=== PATIENT | female | born 1995 | race Caucasian/White ===

== ENCOUNTER 2019-07-06 07:09 | Emergency (ER) | payer BC, OTHER ==
[2019-07-06 07:30] VITALS: BP 98/62
--- NOTE | 2019-07-06 07:53 | UC ---
UC General HPI - HPI Summary HPI Summary: 23-year-old woman comes in with a chief complaint of possible exposure to rabies. Patient woke up with a bat in her room during the evening of July 03 into the morning of July 04. She has no known bites. She discussed this with the General acute hospital Department and it was recommended that she get the rabies series. She does have some upper respiratory tract infection symptoms feeling well otherwise. Has no prior history of rabies immunization. She believes she is up-to-date on her tetanus and she states that she will investigate that with her primary care to determine if she's had her tetanus or not. - History of Current Complaint Chief Complaint: UCBiteInjury Stated Complaint: RABIES EXPOSURE Time Seen by Provider: 07/06/19 07:37 Hx Last Menstrual Period: 06/26/19 Pain Intensity: 0 - Allergy/Home Medications Allergies/Adverse Reactions: Allergies Allergy/AdvReac Type Severity Reaction Status Date / Time No Known Allergies Allergy Verified 07/06/19 07:30 Home Medications: Home Medications Aviane Control 1 tab PO DAILY 07/06/19 [History Confirmed 07/06/19] PMH/Surg Hx/FS Hx/Imm Hx Previously Healthy: Yes - Surgical History Surgical History: Yes Surgery Procedure, Year, and Place: right knee arthroscope,. hernia. T&A. mole removal - Family History Known Family History: Positive: Non-Contributory - Social History Alcohol Use: Occasionally Substance Use Type: Marijuana Smoking Status (MU): Never Smoked Tobacco Review of Systems All Other Systems Reviewed And Are Negative: Yes Constitutional: Positive: Negative Skin: Positive: Negative Eyes: Positive: Negative ENT: Positive: Sore Throat, Nasal Discharge Respiratory: Positive: Negative Cardiovascular: Positive: Negative Gastrointestinal: Positive: Negative Motor: Positive: Negative Neurovascular: Positive: Negative Musculoskeletal: Positive: Negative Neurological: Positive: Negative Psychological: Positive: Negative Is Patient Immunocompromised?: No Physical Exam Triage Information Reviewed: Yes Appearance: Well-Appearing, No Pain Distress, Well-Nourished Vital Signs: Initial Vital Signs Temp 99 F 07/06/19 07:23 Pulse 67 07/06/19 07:23 Resp 18 07/06/19 07:23 BP 98/62 07/06/19 07:23 Pulse Ox 100 07/06/19 07:23 Vital Signs Reviewed: Yes Eye Exam: Normal Eyes: Positive: Conjunctiva Clear Neck: Positive: Supple Respiratory: Positive: Lungs clear, Normal breath sounds, No respiratory distress Cardiovascular: Positive: RRR Musculoskeletal: Positive: Strength Intact, ROM Intact Neurological: Positive: Alert Psychological: Positive: Age Appropriate Behavior Skin Exam: Normal Course/Dx - Diagnoses Provider Diagnosis: Need for post exposure prophylaxis for rabies Discharge ED - Sign-Out/Discharge Documenting (check all that apply): Patient Departure All imaging exams completed and their final reports reviewed: No Studies - Discharge Plan Condition: Stable Disposition: HOME Patient Education Materials: Rabies Vaccine (ED), Rabies Immune Globulin (By injection) Referrals: Yen Kaplan MD [Primary Care Provider] - [facility] [Outside] Additional Instructions: [facility] WITH [facility], . YOU WERE GIVEN THE FIRST RABIES VACCINE TODAY. YOU NEED TO CONTINUE THE SERIES WITH THE HEALTH DEPARTMENT. YOU WERE ALSO GIVEN RABIES IMMUNE GLOBULIN TODAY. GET RECHECKED SOONER IF YOUR CONDITION WORSENS OR ANY QUESTIONS OR CONCERNS. - Billing Disposition and Condition Condition: STABLE Disposition: Home
[2019-07-06] MEDS: Rabies VIRUS VACCINE (RabAvert)* 2.5 UNITS VIAL IM ONE (08:09)
[2019-07-06] MEDS: Rabies Immune Globulin/PF 1ML* 1 ML/300 UNITS VIAL IM ONE (08:12)
[2019-07-06] MEDS: Tetan/Diph/Pertus SYR(Tdap)* 0.5 ML SYR(BOOSTRIX) use SYR IM ONE (08:20)
== END 2019-07-06 08:48 | disposition home or self-care (01) ==
LOC: UCEAST 07:09
DX: Z29.14 Encounter for prophylactic rabies immune globulin (principal); Z23 Encounter for immunization
CPT/HCPCS: 90375; 90471; 90472; 90675; 90715; 96372; 99211; G0463